=== PATIENT | male | born 1945 | race Caucasian/White ===

== ENCOUNTER 2018-11-20 12:05 | Emergency (ER) | payer OTHER ==
[~2018-11-20] VITALS: Ht 172.7 cm; Wt 104.3 kg
[2018-11-20] MEDS ORDERED: FORTAMET1000 MG (13:36)
[2018-11-20] MEDS ORDERED: ZYLOPRIM100 MG (13:37)
[2018-11-20] MEDS ORDERED: RAMIPRIL10 MG (13:39)
[2018-11-20] MEDS ORDERED: PREGABALIN (13:39)
[2018-11-20] MEDS ORDERED: ATORVASTATIN CA20 MG (13:39)
[2018-11-20] MEDS ORDERED: ANUSOL-HC25 MG (13:40)
== END 2018-11-20 15:44 | disposition home or self-care (01) ==
LOC: ER 12:05
DX: E11.40 Type 2 diabetes mellitus with diabetic neuropathy, unspecified (principal)